=== PATIENT | female | born 2005 | race Caucasian/White ===

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

== ENCOUNTER 2024-02-28 16:49 | Emergency (ER) | payer OTHER ==
[~2024-02-28] VITALS: Ht 170.2 cm; Wt 89.9 kg
[~2024-02-28 16:49] MED LIST changes: +PROMETHAZINE HC25 MG PR
[2024-02-28] MEDS ORDERED: AMOX TR-K CLV1 EAC1 PO (20:36)
[2024-02-28] MEDS ORDERED: AMOXICILLIN/CLAVULANATE K 875 MG HOME.PACK PO ONE (20:45)
[2024-02-28 20:48] VITALS: BP 117/83
== END 2024-02-28 20:48 | disposition home or self-care (01) ==
LOC: ED 16:49
DX: L60.0 Ingrowing nail (principal); Z91.09 Other allergy status, other than to drugs and biological substances; Z79.899 Other long term (current) drug therapy
CPT/HCPCS: 99283

== ENCOUNTER 2024-05-17 23:02 | Emergency (ER) | payer OTHER ==
[~2024-05-17] VITALS: Ht 170.2 cm; Wt 91.8 kg
[~2024-05-17 23:02] MED LIST changes: +AMOX TR-K CLV1 EAC1 PO
[2024-05-17] MEDS ORDERED: KETOROLAC TROMETHAMINE 30 MG/ML VIAL IV ONE (23:30)
[2024-05-17] MEDS ORDERED: PROCHLORPERAZINE EDISYLATE 10 MG/2 ML VIAL IV ONE (23:30)
[2024-05-17] MEDS ORDERED: LACTATED RINGER'S 1,000 ML IV ONE (23:30)
[2024-05-17] MEDS ORDERED: diphenhydrAMINE HCL 50 MG/ML VIAL IV ONE (23:30)
[2024-05-18 00:06] LABS: ALBUMIN/GLOBULIN RATIO 1.6 (1.1-2.4); ANION GAP 15.9 (7-21); BILIRUBIN, TOTAL 0.5 mg/dL (0.2-1.0); CALCIUM 8.7 mg/dL (8.5-10.1); CREATININE, SERUM 0.8 mg/dL (0.55-1.02); POTASSIUM 2.9 mmol/L (3.5-5.1); PROTEIN, TOTAL 6.5 g/dL (6.4-8.2)
[2024-05-18 00:07] LABS: BASOPHILS 0.7 % (0-2); EOSINOPHILS 2.1 % (0-6); HEMATOCRIT 35.1 % (35.0-50.0); HEMOGLOBIN 12.3 g/dL (12.0-18.0); LYMPHOCYTES 31.7 % (24-44); MCH 29.2 (27-36); MCV 83.6 fl (81-99); MONOCYTES 7.2 % (0-12); NEUTROPHILS 58.3 % (39-80); PLATELET COUNT 178 K/uL (140-440); RDW 13.9 (10.5-15.0)
[2024-05-18 01:11] LABS: BILIRUBIN, URINE NEGATIVE (negative); BLOOD/HGB, URINE NEGATIVE (Negative); KETONE, URINE NEGATIVE (Negative); LEUK ESTERASE, URINE NEGATIVE (negative); NITRITE, URINE NEGATIVE (negative)
[2024-05-18 01:25] LABS: AMPHETAMINES, URINE NEGATIVE (NEGATIVE); BARBITURATES, URINE NEGATIVE (NEGATIVE); BENZODIAZEPINE, URINE NEGATIVE (NEGATIVE); BUPRENORPHINE, URINE NEGATIVE (NEGATIVE); CANNABINOID, URINE POSITIVE (NEGATIVE); COCAINE, URINE NEGATIVE (NEGATIVE); ECSTASY, URINE NEGATIVE (NEGATIVE); FENTANYL, URINE NEGATIVE (NEGATIVE); METHADONE, URINE NEGATIVE (NEGATIVE); OPIATES, URINE NEGATIVE (NEGATIVE); OXYCODONE, URINE NEGATIVE (NEGATIVE); PHENCYCLIDINE, URINE NEGATIVE (NEGATIVE)
[2024-05-18 01:37] VITALS: BP 104/68
== END 2024-05-18 01:35 | disposition home or self-care (01) ==
LOC: ED 23:02
PROVIDERS: Internal Medicine
DX: G43.909 Migraine, unspecified, not intractable, without status migrainosus (principal); M54.2 Cervicalgia; Z91.048 Other nonmedicinal substance allergy status
CPT/HCPCS: 36415; 80053; 80307; 81003; 85025; 96374; 96375; 99283-25; J0780; J1200; J1885; J7121

== ENCOUNTER 2024-05-21 18:23 | Emergency (ER) | payer OTHER ==
[~2024-05-21] VITALS: Ht 170.2 cm; Wt 91.8 kg
--- OUTSIDE RECORDS SUMMARY | 2024-05-21 18:30 | XMS ---
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 Jonah VISIT COUNT (12 MO.) [address] [place] [address] Geno Rodriguez (Libia Reza) TOTAL 8 NOTE: Visits indicate total known visits. 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 - Pain in right finger(s) 09/07/2023 14:49 [facility] (Libia Reza) TYPE: Emergency DIAGNOSES: - Procedure and treatment not carried out due to patient leaving prior to being seen by health care provider - Fall - fell, 33 weeks , ob told her to come to ER 09/07/2023 02:29 ESTEFANIA Navarro TYPE: Emergency COMPLAINT: - HEAD INJURY DIAGNOSES: - 33 weeks gestation of - Other specified diseases and conditions complicating - Syncope and collapse 07/22/2023 10:33 ESTEFANIA [facility]ao [place] TYPE: Emergency COMPLAINT: - SYNCOPE DIAGNOSES: - 26 weeks gestation of - Endocrine, nutritional and metabolic diseases complicating , second trimester - Hypokalemia - Hypomagnesemia - Other specified diseases and conditions complicating - Syncope and collapse 07/06/2023 12:32 [facility]Lib[facility] TYPE: Emergency DIAGNOSES: - Vomiting, unspecified - Emesis During - n/v, 23 wks 07/05/2023 09:[facility] TYPE: Emergency COMPLAINT: - VOMITING DIAGNOSES: - 23 weeks gestation of - Acute pharyngitis, unspecified - Diseases of the respiratory system complicating , second trimester - Late vomiting of - Late vomiting of - Vomiting of , unspecified INPATIENT VISIT TRACKING (12 MO.) 10/24/2023 02:22 [facility]Libia [facility] TYPE: Mother Baby Unit DIAGNOSES: - Encounter for routine follow-up - Rupture of Membranes 07/22/2023 15:40 ESTEFANIA Dao [place] TYPE: Observation COMPLAINT: - SYNCOPY [email or web address]
[2024-05-21] MEDS ORDERED: ONDANSETRON 4 MG TAB ODT SL ONE (19:30)
[2024-05-21 19:51] LABS: BASOPHILS 0.6 % (0-2); EOSINOPHILS 0.5 % (0-6); HEMATOCRIT 36.6 % (35.0-50.0); HEMOGLOBIN 12.8 g/dL (12.0-18.0); LYMPHOCYTES 25.4 % (24-44); MCH 29.1 (27-36); MCHC 34.8 g/dl (30-36); MCV 83.4 fl (81-99); NEUTROPHILS 66.5 % (39-80); PLATELET COUNT 162 K/uL (140-440); RBC 4.39 M/ul (4.3-5.7); RDW 14.1 (10.5-15.0)
[2024-05-21 20:05] LABS: ALBUMIN 3.8 g/dL (3.4-5.0); ALBUMIN/GLOBULIN RATIO 1.31 (1.1-2.4); ANION GAP 15.9 (7-21); BILIRUBIN, TOTAL 0.6 mg/dL (0.2-1.0); BUN/CREATININE RATIO 6.52 (6.0-28.6); CALCIUM 8.7 mg/dL (8.5-10.1); CREATININE, SERUM 0.92 mg/dL (0.55-1.02); MAGNESIUM 1.8 mg/dL (1.8-2.4); POTASSIUM 3.9 mmol/L (3.5-5.1); PROTEIN, TOTAL 6.7 g/dL (6.4-8.2)
[2024-05-21] MEDS ORDERED: KETOROLAC TROMETHAMINE 30 MG/ML VIAL IV ONE (20:15)
[2024-05-21 20:26] LABS: INFLUENZA B NAA NEGATIVE (NEGATIVE); RESPIRATORY SYNCYTIAL VIR NAA NEGATIVE (NEGATIVE)
[2024-05-21] MEDS ORDERED: ONDANSETRON ODT8 MG PO (20:56)
[2024-05-21] MEDS ORDERED: CELEBREX200 MG PO (20:56)
[2024-05-21 21:47] VITALS: BP 120/92
== END 2024-05-21 21:40 | disposition home or self-care (01) ==
LOC: ED 18:23
PROVIDERS: Family Medicine
DX: B34.9 Viral infection, unspecified (principal); Z91.048 Other nonmedicinal substance allergy status
CPT/HCPCS: 36415; 71045; 72040; 80053; 83735; 84703; 85025; 87502; 96374; 99283-25; A9270; J1885; U0002

== ENCOUNTER 2025-01-26 10:11 | Emergency (ER) | payer OTHER ==
[~2025-01-26] VITALS: Ht 170.2 cm; Wt 89.0 kg
[~2025-01-26 10:11] MED LIST changes: +CELEBREX200 MG PO; +ONDANSETRON ODT8 MG PO
[2025-01-26] MEDS ORDERED: IBU600 MG PO (11:51)
[2025-01-26 12:04] VITALS: BP 100/66
== END 2025-01-26 12:03 | disposition home or self-care (01) ==
LOC: ED 10:11
DX: S33.5XXA Sprain of ligaments of lumbar spine, initial encounter (principal); W19.XXXA Unspecified fall, initial encounter; Z91.048 Other nonmedicinal substance allergy status
CPT/HCPCS: 72100; 73502; 99283

== ENCOUNTER 2025-02-20 17:46 | Emergency (ER) | payer OTHER ==
[~2025-02-20] VITALS: Ht 170.2 cm; Wt 89.0 kg
[~2025-02-20 17:46] MED LIST changes: +IBU600 MG PO
--- OUTSIDE RECORDS SUMMARY | 2025-02-20 17:53 | XMS ---
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 Jonah VISIT COUNT (12 MO.) 5 ESTEFANIA Moore M.C. (Libia Reza) TOTAL 7 NOTE: Visits indicate total known visits. ED/UCC VISIT TRACKING (12 MO.) 02/20/2025 17:46 ESTEFANIA Dao [place] TYPE: Emergency COMPLAINT: - WRIST PAIN 01/26/2025 10:12 ESTEFANIA Dao [place] TYPE: Emergency COMPLAINT: - BACK PAIN DIAGNOSES: - Low back pain, unspecified - Other nonmedicinal substance allergy status - Sprain of ligaments of lumbar spine, initial encounter - Unspecified fall, initial encounter 11/15/2024 23:40 [facility] Libia PANTOJA (Libia Reza) TYPE: Emergency DIAGNOSES: - Delayed or excessive hemorrhage following complete or unspecified spontaneous - Fatigue - Nausea - Pt feels faint and hot flashes with vaginal bleed - Vaginal Bleeding 07/24/2024 16:08 [facility] Libia PANTOJA (Libia Reza) TYPE: Emergency DIAGNOSES: - Unspecified convulsions - Dizziness - Possible Seizure 05/21/2024 18:23 ESTEFANIA Dao [place] TYPE: Emergency COMPLAINT: - NECK PAIN DIAGNOSES: - Cervicalgia - Other nonmedicinal substance allergy status - Viral infection, unspecified 05/17/2024 23:03 ESTEFANIA Dao OR TYPE: Emergency COMPLAINT: - NECK PAIN/VOMITING DIAGNOSES: - Cervicalgia - Migraine, unspecified, not intractable, without status migrainosus - Other nonmedicinal substance allergy status 02/28/2024 16:50 ESTEFANIA Dao [place] TYPE: Emergency COMPLAINT: - FOOT PAIN DIAGNOSES: - Ingrowing nail - Other allergy status, other than to drugs and biological substances - Other chcf (current) drug therapy - Pain in right finger(s) INPATIENT VISIT TRACKING (12 MO.) No inpatient visits to display in this time frame [email or web address]
[2025-02-20 18:56] VITALS: BP 109/84
== END 2025-02-20 18:57 | disposition home or self-care (01) ==
LOC: ED 17:46
DX: G56.01 Carpal tunnel syndrome, right upper limb (principal); Z91.048 Other nonmedicinal substance allergy status
CPT/HCPCS: 73130; 99283